=== PATIENT | female | born 1950 | race Caucasian/White ===

== ENCOUNTER 2016-06-17 13:23 | Outpatient (CLI) | payer MEDICARE, MEDICAID | END 2016-06-17 13:24 | disposition home or self-care (01) | DX: M51.36 Other intervertebral disc degeneration, lumbar region (principal); M47.816 Spondylosis without myelopathy or radiculopathy, lumbar region; M25.511 Pain in right shoulder; M19.011 Primary osteoarthritis, right shoulder ==

== ENCOUNTER 2016-10-22 09:02 | Outpatient (CLI) | payer MEDICARE, MEDICAID ==
[2016-10-22 14:12] LABS: CALCIUM 8.8 mg/dL (8.5-10.3); CREATININE 0.9 mg/dL (0.4-1.0); POTASSIUM 3.1 mmol/L (3.5-5.0)
== END 2016-10-22 09:03 | disposition home or self-care (01) ==
LOC: LAB.N 09:02
PROVIDERS: ATTEND Family Medicine
DX: E87.6 Hypokalemia (principal)
CPT/HCPCS: 36415; 80048

== ENCOUNTER 2017-01-05 13:49 | Outpatient (CLI) | payer MEDICARE, MEDICAID ==
--- NOTE | 2017-01-05 17:01 | XRAY Report ---
TWO VIEW CHEST: 01/05/2017 CLINICAL INDICATION: COPD exacerbation. COMPARISON: 11/15/2013. FINDINGS: Frontal and lateral views of the chest demonstrate a normal cardiac silhouette. The lungs are clear. No effusion or pneumothorax is present. IMPRESSION: NORMAL CHEST, UNCHANGED. JOB #: [id number] EXT JOB #:[id number]
== END 2017-01-05 13:50 | disposition home or self-care (01) ==
LOC: DI.N 13:49
PROVIDERS: ATTEND Family Medicine
DX: J44.1 Chronic obstructive pulmonary disease with (acute) exacerbation (principal); E87.6 Hypokalemia
CPT/HCPCS: 36415; 71020; 84132

== ENCOUNTER 2017-01-05 14:06 | Outpatient (CLI) | payer MEDICARE, MEDICAID | END 2017-01-05 14:07 | disposition home or self-care (01) | LOC: LAB.N 14:06 | PROVIDERS: ATTEND Physician Assistant | DX: E87.6 Hypokalemia (principal) | CPT/HCPCS: 36415; 84132 ==

== ENCOUNTER 2017-06-06 18:55 | Outpatient (CLI) | payer MEDICARE, MEDICAID | END 2017-06-06 18:56 | disposition critical access hospital (66) | LOC: EMS 18:55 | PROVIDERS: ATTEND Surgery | DX: M54.9 Dorsalgia, unspecified (principal); R06.02 Shortness of breath | CPT/HCPCS: A0425; A0427 ==

== ENCOUNTER 2017-06-06 19:16 | Emergency (ER) | payer MEDICARE, MEDICAID ==
[2017-06-06 20:03] LABS: BASOPHILS % (AUTO) 0.4 %; EOSINOPHILS # (AUTO) 0.1 10^3/uL (0.0-0.7); EOSINOPHILS % (AUTO) 0.9 %; HCT - HEMATOCRIT 43.7 % (37.0-47.0); HGB - HEMOGLOBIN 14.7 g/dL (12.0-16.0); LYMPHOCYTES # (AUTO) 2.5 10^3/uL (1.5-3.5); LYMPHOCYTES % (AUTO) 30.6 %; MEAN CORPUSCULAR HEMOGLOBIN 31.9 pg (27.0-31.0); MEAN CORPUSCULAR HGB CONC 33.6 g/dL (32.0-36.0); MEAN CORPUSCULAR VOLUME 95.1 fL (81.0-99.0); MEAN PLATELET VOLUME 7.5 fL (7.9-10.8); MONOCYTES # (AUTO) 0.9 10^3/uL (0.0-1.0); MONOCYTES % (AUTO) 11.6 %; NEUTROPHILS # (AUTO) 4.6 10^3/uL (1.5-6.6); NEUTROPHILS % (AUTO) 56.5 %; UNCORRECTED WHITE BLOOD COUNT 8.1 x10^3/uL; WHITE BLOOD COUNT 8.1 x10^3/uL (4.8-10.8)
[2017-06-06] MEDS ORDERED: ASPIRIN CHEW 81 MG TABLET PO STA (20:12)
[2017-06-06] MEDS ORDERED: SODIUM CHLORIDE 0.9% 1,000 ML IV ONE (20:12)
[2017-06-06 20:16] LABS: ALBUMIN/GLOBULIN RATIO 1.3 (1.0-2.2); BILIRUBIN,TOTAL 0.4 mg/dL (0.2-1.0); CALCIUM 9.3 mg/dL (8.5-10.3); CREATININE 0.9 mg/dL (0.4-1.0); POTASSIUM 3.8 mmol/L (3.5-5.0)
[2017-06-06] MEDS ORDERED: IOPAMIDOL-300 100 ML VIAL ONE (20:47)
--- NOTE | 2017-06-06 20:52 | XRAY Preliminary Report ---
Exam: XR CHEST 1 VIEW IMPRESSION: 1. Stable mild cardiomegaly. 2. Apparent mediastinal widening is favored to be related to patient rotation and portable technique. If there is clinical concern for acute aortic pathology, recommend chest CT. [facility] SITE ID: [id number]
--- NOTE | 2017-06-06 20:55 | XRAY Report ---
EXAM: CHEST RADIOGRAPHY EXAM DATE: 06/06/2017 08:29 PM. CLINICAL HISTORY: Chest pain. COMPARISON: 01/05/2017, 01/29/2012, 03/14/2010. TECHNIQUE: 1 view. FINDINGS: Lungs/Pleura: Minimal bibasilar atelectasis and pulmonary vasculature crowding on hypoventilatory santino ge. No pleural effusion or pneumothorax Mediastinum: Stable mild cardiomegaly. Apparent mild mediastinal widening likely related to patient r otation and portable technique Other: Distal left clavicular resection or osteolysis, stable. Anterior instrumented spinal fusion p rocedure of the cervical spine. IMPRESSION: 1. Stable mild cardiomegaly. 2. Apparent mediastinal widening is favored to be related to patient rotation and portable technique. If there is clinical concern for acute aortic pathology, recommend chest CT. [facility] Referring Provider Line: [phone] SITE ID: [id number]
[2017-06-06] MEDS ORDERED: IOPAMIDOL-300 100 ML VIAL IVP ONE (21:29)
--- NOTE | 2017-06-06 22:00 | CT Preliminary Report ---
Exam: CT CHEST ANGIO (PE) IMPRESSION: 1. No pulmonary emboli. 2. No aortic aneurysm or dissection. 3. Dependent atelectasis in the lungs bilaterally. [facility] SITE ID: [id number]
--- NOTE | 2017-06-06 22:03 | CT Report ---
EXAM: CT ANGIOGRAM CHEST EXAM DATE: 06/06/2017 09:36 PM. CLINICAL HISTORY: Right chest pain. COMPARISON: None. TECHNIQUE: Routine helical imaging was performed through the chest in the pulmonary arterial phase. I V Contrast: 100 cc of Isovue-300. Reconstructions: Coronal 3-D MIP reconstructions.Sagittal and coron al. In accordance with CT protocol optimization, one or more of the following dose reduction techniques w ere utilized for this exam: automated exposure control, adjustment of mA and/or KV based on patient s ize, or use of iterative reconstructive technique. FINDINGS: Pulmonary Arteries: Diagnostic quality: Adequate through the segmental arteries. No evidence for acute or chronic pulmona ry emboli. RV/LV is within normal limits. There is no interventricular septal bowing. There is no reflux of cont rast material in the IVC. Lungs/Pleura: Scattered peripheral micronodules. Dependent atelectasis bilaterally. No consolidation or edema. No effusions or pneumothorax. Mediastinum: Normal. No cardiac enlargement or adenopathy. Thoracic Aorta: Mild aortic calcification, otherwise unremarkable. Upper Abdomen: Cholecystectomy clips noted. Other: None. IMPRESSION: 1. No pulmonary emboli. 2. No aortic aneurysm or dissection. 3. Dependent atelectasis in the lungs bilaterally. [facility] Referring Provider Line: [phone] SITE ID: [id number]
--- NOTE | 2017-06-06 22:35 | ED Physician Documentation ---
History of Present Illness - Stated complaint Stated Complaint: BACK/SHOULDER PAIN - Chief complaint Chief Complaint: Cardiac - History obtained from History obtained from: Patient (pt is here for evaluation of right sided burning chest pain and back pain and neck pain. staes that it started earlier today while she was standing washing dishes. sudden onset. does have a history of COPD. states that the pain was burning and was under her right breast and radiated to her upper back then up into her neck. at the time of my evaluation he reported that the right side pain had somewhat improved and the radiation to her neck had improved but she still had some back pain. states that the right sided chest pain did get worse with palpation but the back pain did not.) Review of Systems Constitutional: denies: Fever, Chills Nose: denies: Rhinorrhea / runny nose, Sinus pressure / pain Throat: denies: Sore throat Cardiac: reports: Chest pain / pressure. denies: Palpitations, Calf pain Respiratory: denies: Dyspnea, Cough, Hemoptysis, Wheezing GI: denies: Abdominal Pain, Nausea, Vomiting, Constipation, Diarrhea : denies: Dysuria, Frequency Skin: denies: Rash, Lesions, Laceration (s) Musculoskeletal: reports: Neck pain, Back pain. denies: Extremity pain, Joint pain Neurologic: denies: Generalized weakness, Altered mental status, Headache, Head injury PD PAST MEDICAL HISTORY - Past Medical History Cardiovascular: Hypertension, High cholesterol, Deep vein thrombosis Respiratory: Asthma, COPD Neuro: Tremors, Other Endocrine/Autoimmune: None GI: Chronic constipation : None HEENT: None Psych: Claustrophobia Musculoskeletal: Other Derm: None - Past Surgical History Past Surgical History: Yes General: Cholecystectomy, Appendectomy, Colonoscopy Ortho: Carpal Tunnel surgery, Spine surgery, Other /SLD EDUCATIONAL AIDE: Hysterectomy - Present Medications Home Medications: Ambulatory Orders Medication Instructions Recorded Confirmed Albuterol [Ventolin Hfa] 1 each INH QID PRN 01/24/14 06/06/17 Baclofen 10 mg ORAL TID 01/24/14 06/06/17 Fluoxetine HCl 40 mg ORAL DAILY 01/24/14 06/06/17 Fluticasone/Salmeterol [Advair Hfa 1 each INH DAILY 01/24/14 06/06/17 115-21 Mcg Inhaler] Losartan [Cozaar] 25 mg ORAL DAILY 01/24/14 06/06/17 Clotrimazole Harish 10 mg MM 5XD PRN #30 lozenge 11/20/15 06/06/17 oxyCODONE [Roxicodone] 2 tab PO Q6HR 11/27/15 06/06/17 Atorvastatin [Lipitor] 20 mg DAILY 06/06/17 06/06/17 Furosemide 20 mg PO 06/06/17 - Allergies Allergies/Adverse Reactions: Allergies Allergy/AdvReac Type Severity Reaction Status Date / Time shellfish derived Allergy Severe Respiratory Verified 06/06/17 19:44 - Social History Does the pt smoke?: Yes Smoking Status: Current every day smoker Does the pt drink ETOH?: No Does the pt have substance abuse?: No - Immunizations Immunizations are current?: Yes PD ED PE NORMAL - Vitals Vital signs reviewed: Yes - General General: Alert and oriented X 3, No acute distress, Well developed/nourished - HEENT HEENT: Atraumatic, Moist mucous membranes - Neck Neck: No bony TTP - Cardiac Cardiac: RRR, No murmur, No gallop - Respiratory Respiratory: No respiratory distress, Clear bilaterally - Abdomen Abdomen: Soft, Non tender, Non distended - Derm Derm: Normal color, Warm and dry, No rash - Extremities Extremities: No deformity, No tenderness to palpate - Neuro Neuro: Alert and oriented X 3, No motor deficit, No sensory deficit, Normal speech Eye Opening: Spontaneous Motor: Obeys Commands Verbal: Oriented GCS Score: 15 - Psych Psych: Normal mood, Normal affect Results - Vitals Vitals: Vital Signs - 24 hr 06/06/17 06/06/17 19:40 21:41 Temperature 36.2 C L 36.2 C L Heart Rate 72 76 Respiratory 19 14 Rate Blood Pressure 116/60 125/56 L O2 Saturation 92 94 Oxygen O2 Source Room air - EKG (time done) 1919 Rate: Rate (enter#) Rhythm: NSR [place]: Normal Intervals: Normal ME, Other (QRS 117ms) Ischemia: Normal ST segments - Labs Labs: Laboratory Tests 06/06/17 06/06/17 06/06/17 19:57 19:57 19:57 WBC 8.1 RBC 4.60 Hgb 14.7 Hct 43.7 MCV 95.1 MCH 31.9 H MCHC 33.6 RDW 14.0 Plt Count 200 MPV 7.5 L Neut # 4.6 Lymph # 2.5 [place] # 0.9 Eos # 0.1 Baso # 0.0 Absolute Nucleated RBC 0.00 Nucleated RBC % 0.0 Sodium 139 Potassium 3.8 Chloride 99 L Carbon Dioxide 30 Anion Gap 10.0 BUN 12 Creatinine 0.9 Estimated GFR (MDRD) 62 L Glucose 117 H Calcium 9.3 Total Bilirubin 0.4 AST 21 ALT 15 Alkaline Phosphatase 71 Troponin I < 0.04 Total Protein 7.0 Albumin 3.9 Globulin 3.1 Albumin/Globulin Ratio 1.3 Lipase 15 L - Rads (name of study) CXR Radiology: Final report received CT PE Radiology: Final report received PD MEDICAL DECISION MAKING - ED course Complexity details: reviewed old records, reviewed results, re-evaluated patient , considered differential, d/w patient ED course: CT neg for PE or aortic pathology. ECG unremarkable. trop neg and in the setting of right sided chest pain that is reproducible with palpation and ther other hx I have low suspicion for ACS. She has a hx of COPD but has had not change in sputum or fevers. no PNA on the radiologic studies. she was given a neb by EMS for "low o2 sats" but she was in no respiratory distress in the ER and sats were in the low 90's. she was asking to go home. We discussed return precautions and the fact that the etiology of her symptoms were not known. She expressed understanding. Departure - Departure Disposition: 01 Home, Self Care Clinical Impression: Chest pain, Back pain Condition: Good Instructions: ED Chest Pain NonCardiac Follow-Up: Horacio Culver MD [Primary Care Provider] - Comments: Continue all of your medications like we discussed. Call your primary care provider for a follow up in the next week. Return to the ER for any new or worsening symptoms.
[2017-06-06 23:02] VITALS: BP 128/66
== END 2017-06-06 23:13 | disposition home or self-care (01) ==
LOC: EDUNIT# → ED 19:16
DX: R07.9 Chest pain, unspecified (principal); M54.9 Dorsalgia, unspecified; M54.2 Cervicalgia; J44.9 Chronic obstructive pulmonary disease, unspecified; I10 Essential (primary) hypertension; E78.00 Pure hypercholesterolemia, unspecified; Z86.718 Personal history of other venous thrombosis and embolism; F17.200 Nicotine dependence, unspecified, uncomplicated
CPT/HCPCS: 36415; 71010; 71275; 80053; 83690; 84484; 85025; 93005; 96360; 96361; 99284; A9270; Q9967

== ENCOUNTER 2017-09-02 08:00 | Outpatient (CLI) | payer MEDICARE, MEDICAID ==
[2017-09-02 12:41] LABS: BASOPHILS % (AUTO) 0.4 %; EOSINOPHILS % (AUTO) 0.5 %; HGB - HEMOGLOBIN 14.5 g/dL (12.0-16.0); LYMPHOCYTES # (AUTO) 1.6 10^3/uL (1.5-3.5); LYMPHOCYTES % (AUTO) 22.1 %; MEAN CORPUSCULAR HEMOGLOBIN 32.1 pg (27.0-31.0); MEAN CORPUSCULAR HGB CONC 33.9 g/dL (32.0-36.0); MEAN CORPUSCULAR VOLUME 94.5 fL (81.0-99.0); MEAN PLATELET VOLUME 7.9 fL (7.9-10.8); MONOCYTES # (AUTO) 0.8 10^3/uL (0.0-1.0); MONOCYTES % (AUTO) 10.8 %; NEUTROPHILS # (AUTO) 4.8 10^3/uL (1.5-6.6); NEUTROPHILS % (AUTO) 66.2 %; PLT - PLATELET COUNT 217 10^3/uL (130-450); RED BLOOD COUNT 4.51 10^6/uL (4.20-5.40); WHITE BLOOD COUNT 7.3 x10^3/uL (4.8-10.8)
[2017-09-02 13:04] LABS: ALBUMIN/GLOBULIN RATIO 1.4 (1.0-2.2); ALKALINE PHOSPHATASE 65 IU/L (42-121); ALT ALANINE AMINOTRANSFERASE 15 IU/L (10-60); AST ASPARTATE AMINOTRANSFERASE 20 IU/L (10-42); BILIRUBIN,TOTAL 0.6 mg/dL (0.2-1.0); BUN - BLOOD UREA NITROGEN 11 mg/dL (6-20); CALCIUM 8.8 mg/dL (8.5-10.3); CARBON DIOXIDE - CO2 28 mmol/L (21-32); CHLORIDE 104 mmol/L (101-111); CHOL/HDL RATIO 3.4 (<4.4); CHOLESTEROL 143 mg/dL; CREATININE 0.6 mg/dL (0.4-1.0); GFR - MDRD 99 (>89); GLUCOSE 98 mg/dL (70-100); HDL CHOLESTEROL 42 mg/dL; LDL CHOLESTEROL,CALCULATED 78 mg/dL; LDL/HDL RATIO 1.9 (<4.4); SODIUM 140 mmol/L (135-145); TOTAL PROTEIN 6.9 g/dL (6.7-8.2); VLDL CHOLESTEROL 23 mg/dL
== END 2017-09-02 08:01 | disposition home or self-care (01) ==
LOC: LAB.N 08:00
PROVIDERS: ATTEND Family Medicine
DX: J44.9 Chronic obstructive pulmonary disease, unspecified (principal); I10 Essential (primary) hypertension; E55.9 Vitamin D deficiency, unspecified; E87.6 Hypokalemia; E78.5 Hyperlipidemia, unspecified
CPT/HCPCS: 36415; 80053; 80061; 82306; 83721; 85025

== ENCOUNTER 2018-03-22 08:54 | Outpatient (CLI) | payer MEDICARE, MEDICAID ==
[2018-03-22 13:16] LABS: ALBUMIN 3.9 g/dL (3.2-5.5); ALBUMIN/GLOBULIN RATIO 1.3 (1.0-2.2); ALKALINE PHOSPHATASE 63 IU/L (42-121); ALT ALANINE AMINOTRANSFERASE 22 IU/L (10-60); AMYLASE 41 U/L (28-100); AST ASPARTATE AMINOTRANSFERASE 25 IU/L (10-42); BILIRUBIN,TOTAL 0.6 mg/dL (0.2-1.0); BUN - BLOOD UREA NITROGEN 14 mg/dL (6-20); CALCIUM 8.6 mg/dL (8.5-10.3); CARBON DIOXIDE - CO2 31 mmol/L (21-32); CHLORIDE 101 mmol/L (101-111); CHOL/HDL RATIO 4.5 (<4.4); CHOLESTEROL 187 mg/dL; CREATININE 0.8 mg/dL (0.4-1.0); GFR - MDRD 71 (>89); GLUCOSE 100 mg/dL (70-100); HDL CHOLESTEROL 42 mg/dL; LDL CHOLESTEROL,CALCULATED 112 mg/dL; LDL/HDL RATIO 2.7 (<4.4); LIPASE 27 U/L (22-51); SODIUM 138 mmol/L (135-145); TOTAL PROTEIN 6.9 g/dL (6.7-8.2); VLDL CHOLESTEROL 33 mg/dL
== END 2018-03-22 08:55 | disposition home or self-care (01) ==
LOC: LAB.N 08:54
PROVIDERS: ATTEND Family Medicine
DX: I10 Essential (primary) hypertension (principal); E78.5 Hyperlipidemia, unspecified; R10.9 Unspecified abdominal pain
CPT/HCPCS: 36415; 80053; 80061; 82150; 83690; 83721; 85651